=== PATIENT | female | born 1985 | race Two or more races ===

== ENCOUNTER 2022-04-25 18:08 | Emergency (ER) | payer MEDICAID ==
[~2022-04-25] VITALS: Ht 160 cm; Wt 78.1 kg
[2022-04-25 18:36] VITALS: BP 114/78
[2022-04-25 19:19] LABS: Urine Blood 3+ /uL (Negative); Urine Specific Gravity 1.024 (1.001-1.035)
[2022-04-25] MEDS ORDERED: SULF800T7 PO (19:58)
[2022-04-25] MEDS ORDERED: IBUP800T27 PO (19:58)
[2022-04-25] MEDS ORDERED: cefTRIAXone SOD 1,000 MG VL IM ONE (20:00)
== END 2022-04-25 20:40 | disposition home or self-care (01) ==
LOC: ER 18:09
DX: N39.0 Urinary tract infection, site not specified (principal); Z79.1 Long term (current) use of non-steroidal anti-inflammatories (NSAID); Z79.2 Long term (current) use of antibiotics
CPT/HCPCS: 81003; 81025; 96372; 99283; J0696